=== PATIENT | male | born 1960 | race Caucasian/White ===

== ENCOUNTER 2022-01-11 21:14 | Inpatient (IN) | payer BC ==
[~2022-01-11] VITALS: Ht 172.7 cm; Wt 96.9 kg
[2022-01-11 21:49] LABS: BASOPHILS # (AUTO) 0.1 10^3/uL (0.0-0.1); BASOPHILS % (AUTO) 0 % (0-10); EOSINOPHILS # (AUTO) 0.2 10^3/uL (0.0-0.3); EOSINOPHILS % (AUTO) 1 % (0-10); HEMATOCRIT 47 % (40-54); HEMOGLOBIN 16.3 g/dL (13.3-17.7); LYMPHOCYTES # (AUTO) 2.2 10^3/uL (1.0-4.0); LYMPHOCYTES % (AUTO) 14 % (12-44); MEAN CORPUSCULAR HEMOGLOBIN 32 pg (25-34); MEAN CORPUSCULAR HGB CONC 35 g/dL (32-36); MEAN CORPUSCULAR VOLUME 92 fL (80-99); MEAN PLATELET VOLUME 9.9 fL (9.0-12.2); MONOCYTES # (AUTO) 1.7 10^3/uL (0.0-1.0); MONOCYTES % (AUTO) 11 % (0-12); NEUTROPHILS # (AUTO) 11.9 10^3/uL (1.8-7.8); NEUTROPHILS % (AUTO) 74 % (42-75); PLATELET COUNT 320 10^3/uL (130-400); WHITE BLOOD COUNT 16.2 10^3/uL (4.3-11.0)
[2022-01-11 21:50] LABS: BILIRUBIN,URINE NEGATIVE (NEGATIVE); CLARITY,URINE CLEAR; COLOR,URINE YELLOW; GLUCOSE, URINE (UA) NEGATIVE (NEGATIVE); KETONES,URINE NEGATIVE (NEGATIVE); LEUKOCYTE ESTERASE ,URINE NEGATIVE (NEGATIVE); NITRITE,URINE NEGATIVE (NEGATIVE); PH,URINE 6.5 (5-9); PROTEIN,URINE 1+ (NEGATIVE)
[2022-01-11 21:59] LABS: BACTERIA,URINE NEGATIVE /HPF; WBC,URINE 0-2 /HPF
[2022-01-11] MEDS ORDERED: fentaNYL INJ 100 MCG/2 ML AMP IVP ONE (22:00)
[2022-01-11 22:04] LABS: EOSINOPHILS % (MANUAL) 1 %; LYMPHOCYTES % (MANUAL) 11 %; MONOCYTES % (MANUAL) 19 %; NEUTROPHILS % (MANUAL) 69 %
[2022-01-11 22:05] LABS: RBC MORPH NORMAL
--- NOTE | 2022-01-11 22:14 | ED Abdominal Pain ---
General Chief Complaint: Abdominal/GI Problems Stated Complaint: R SIDE ABD PAIN Nursing Triage Note: PT AMBULATORY INTO ER WITH COMPLAINT OF RIGHT SIDED ABDOMINAL PAIN SINCE THIS AM. PT STATES THAT ITS A SHARP PAIN THAT DOESN'T RADIATE. PT DENIES IT WORSENING WITH URINE OR BOWEL. PT DENIES NAUSEA OR VOMITING. PAINT A /10. PT STATES THAT HE TAKES PERCOCET AT HOME FOR SCIATICA PAIN AND IT DIDN'T HELP WITH THE ABDOMINAL PAIN AT ALL. Source of Information: Patient Exam Limitations: No Limitations History of Present Illness Date Seen by Provider: January 11, 2022 Time Seen by Provider: 21:27 Initial Comments This 61-year-old gentleman presents to the emergency room with intense right upper quadrant pain that started early this morning and woke him up. It does hurt to breathe and sometimes to move. He denies any nausea, vomiting, diarrhea, constipation, or urinary changes. He reports a questionable subjective fever earlier but nothing objective. He ate smoked turkey and beans around 1630 which worsened his pain. He has very little health history. He is treated for chronic back pain and hypertension. He sees Nesha at [facility] for his primary care. Allergies and Home Medications Allergies Coded Allergies: Penicillins (Verified Allergy, Unknown, 01/11/22) Patient Home Medication List Home Medication List Reviewed: Yes Review of Systems Review of Systems Constitutional: see HPI EENTM: No Symptoms Reported Respiratory: See HPI Cardiovascular: No Symptoms Reported Gastrointestinal: See HPI Genitourinary: No Symptoms Reported Musculoskeletal: see HPI Skin: no symptoms reported Psychiatric/Neurological: No Symptoms Reported Endocrine: No Symptoms Reported Hematologic/Lymphatic: No Symptoms Reported Past Ufsaxhm-Dhrich-Jlochk Hx Patient Social History Tobacco Use?: No Use of E-Cig and/or Vaping dev: No Substance use?: No Alcohol Use?: No Pt feels they are or have been: No Immunizations Up To Date Influenza Vaccine Up-to-Date: Yes; Up-to-Date Second COVID19 Vaccination Armani: 08/03 COVID19 Vaccine Ob Gyn: AVTAR Past Medical History Surgeries: No Respiratory: No Cardiac: Yes Hypertension Neurological: No Genitourinary: No Gastrointestinal: No Musculoskeletal: Yes (Sciatica) Chronic Back Pain Endocrine: No HEENT: No Cancer: No Psychosocial: No Integumentary: No Physical Exam Vital Signs Vital Signs - First Documented 01/11/22 21:54 Temp 36.8 Pulse 91 Resp 18 B/P (MAP) 167/95 (119) Pulse Ox 95 O2 Delivery Room Air Capillary Refill : Less Than 3 Seconds Height/Weight/BMI Height: '" Weight: lbs. oz. kg; 31.00 BMI Method: General Appearance: WD/WN, mild distress HEENT: PERRL/EOMI, normal ENT inspection Neck: normal inspection Respiratory: lungs clear, normal breath sounds, no respiratory distress Cardiovascular: no edema, no murmur, tachycardia (Mild, regular) Gastrointestinal: normal bowel sounds, soft; No distended; tenderness (Moderate to severe point tenderness in the right upper quadrant) Extremities: normal inspection, no pedal edema Neurologic/Psychiatric: no motor/sensory deficits, alert, normal mood/affect, oriented x 3 Skin: normal color, warm/dry Focused Exam Lactate Level 01/11/22 23:21: Lactic Acid Level 0.78 Lactic Acid Level Laboratory Tests Test 01/11/22 23:21 Lactic Acid Level 0.78 MMOL/L (0.50-2.00) Progress/Results/Core Measures Results/Orders Lab Results Laboratory Tests Test 01/11/22 21:36 01/11/22 23:21 Range/Units White Blood Count 16.2 H 4.3-11.0 10^3/uL Red Blood Count 5.12 4.30-5.52 10^6/uL Hemoglobin 16.3 13.3-17.7 g/dL Hematocrit 47 40-54 % Mean Corpuscular Volume 92 80-99 fL Mean Corpuscular Hemoglobin 32 25-34 pg Mean Corpuscular Hemoglobin Concent 35 32-36 g/dL Red Cell Distribution Width 12.2 10.0-14.5 % Platelet Count 320 130-400 10^3/uL Mean Platelet Volume 9.9 9.0-12.2 fL Immature Granulocyte % (Auto) 0 % Neutrophils (%) (Auto) 74 42-75 % Lymphocytes (%) (Auto) 14 12-44 % Monocytes (%) (Auto) 11 0-12 % Eosinophils (%) (Auto) 1 0-10 % Basophils (%) (Auto) 0 0-10 % Neutrophils # (Auto) 11.9 H 1.8-7.8 10^3/uL Lymphocytes # (Auto) 2.2 1.0-4.0 10^3/uL Monocytes # (Auto) 1.7 H 0.0-1.0 10^3/uL Eosinophils # (Auto) 0.2 0.0-0.3 10^3/uL Basophils # (Auto) 0.1 0.0-0.1 10^3/uL Immature Granulocyte # (Auto) 0.1 0.0-0.1 10^3/uL Neutrophils % (Manual) 69 % Lymphocytes % (Manual) 11 % Monocytes % (Manual) 19 % Eosinophils % (Manual) 1 % Blood Morphology Comment NORMAL Prothrombin Time 13.4 12.2-14.7 SEC INR Comment 1.0 0.8-1.4 Activated Partial Thromboplast Time 33 24-35 SEC Urine Color YELLOW Urine Clarity CLEAR Urine pH 6.5 5-9 Urine Specific [place] 1.015 L 1.016-1.022 Urine Protein 1+ H NEGATIVE Urine Glucose (UA) NEGATIVE NEGATIVE Urine Ketones NEGATIVE NEGATIVE Urine Nitrite NEGATIVE NEGATIVE Urine Bilirubin NEGATIVE NEGATIVE Urine Urobilinogen 0.2 < = 1.0 MG/DL Urine Leukocyte Esterase NEGATIVE NEGATIVE Urine RBC (Auto) 1+ H NEGATIVE Urine RBC 2-5 H /HPF Urine WBC 0-2 /HPF Urine Squamous Epithelial Cells NONE /HPF Urine Renal Epithelial Cells NONE /HPF Urine Crystals NONE /LPF Urine Bacteria NEGATIVE /HPF Urine Casts NONE /LPF Urine Mucus NEGATIVE /LPF Urine Culture Indicated NO Sodium Level 140 135-145 MMOL/L Potassium Level 3.7 3.6-5.0 MMOL/L Chloride Level 107 98-107 MMOL/L Carbon Dioxide Level 18 L 21-32 MMOL/L Anion Gap 15 H 5-14 MMOL/L Blood Urea Nitrogen 16 7-18 MG/DL Creatinine 1.38 H 0.60-1.30 MG/DL Estimat Glomerular Filtration Rate 57 BUN/Creatinine Ratio 12 Glucose Level 125 H 70-105 MG/DL Calcium Level 9.6 8.5-10.1 MG/DL Corrected Calcium 9.4 8.5-10.1 MG/DL Total Bilirubin 0.9 0.1-1.0 MG/DL Aspartate Amino Transf (AST/SGOT) 19 5-34 U/L Alanine Aminotransferase (ALT/SGPT) 26 0-55 U/L Alkaline Phosphatase 85 40-136 U/L C-Reactive Protein High Sensitivity 17.30 H 0.00-0.50 MG/DL Total Protein 7.5 6.4-8.2 GM/DL Albumin 4.2 3.2-4.5 GM/DL Lipase 13 8-78 U/L Lactic Acid Level 0.78 0.50-2.00 MMOL/L My Orders Orders - ISRRAEL MORA MD Cbc With Automated Diff (01/11/22:27) Comprehensive Metabolic Panel (01/11/22:) Hs C Reactive Protein (01/11/22:) Ua Culture If Indicated (01/11/22:27) Ed Iv/Invasive Line Start (01/11/22:27) Manual Differential (01/11/22 21:36) Fentanyl Inj (Sublimaze Injection) (01/11/22 22:00) Lipase (01/11/22 22:02) Lactated Ringers (Lr 1000 Ml Iv Solution (01/11/22 22:45) Ct Abdomen/Pelvis W (01/11/22 22:32) Iohexol Injection (Omnipaque 350 Mg/Ml 1 (01/11/22 23:15) Received Contrast (Hold Metformin- Contr (01/11/22 23:15) Ns (Ivpb) (Sodium Chloride 0.9% Ivpb Bag (01/11/22 23:15) Blood Culture (01/11/22 23:13) Protime With Inr (01/11/22 23:13) Partial Thromboplastin Time (01/11/22 23:13) Vital Signs Adult Sepsis Patie Q15M (01/11/22 23:13) Remove Rings In Anticipation O (01/11/22 23:13) Lactic Acid Analyzer (01/11/22 23:13) Meropenem (Merrem 1000 Mg) (01/11/22 23:15) Medications Given in ED Current Medications Medications Dose Ordered Sig/Tomasz Route Start Time Stop Time Status Last Admin Dose Admin Fentanyl Citrate 75 mcg ONCE ONCE IVP 01/11/22 22:00 01/11/22 22:01 DC 01/11/22 22:06 75 MCG Iohexol 100 ml ONCE ONCE IV 01/11/22 23:15 01/11/22 23:24 DC 01/11/22 23:05 100 ML Lactated Ringer's 1,000 ml @ 0 mls/hr Q0M ONCE IV 01/11/22 22:45 01/11/22 22:46 DC 01/11/22 22:46 999 MLS/HR Meropenem 1000 mg/ Sodium Chloride 100 ml @ 200 mls/hr ONCE ONCE IV 01/11/22 23:15 01/11/22 23:44 DC 01/12/22 00:25 200 MLS/HR Sodium Chloride 100 ml ONCE ONCE IV 01/11/22 23:15 01/11/22 23:24 DC 01/11/22 23:05 80 ML Vital Signs/I&O 01/11/22 21:54 Temp 36.8 Pulse 91 Resp 18 B/P (MAP) 167/95 (119) Pulse Ox 95 O2 Delivery Room Air Blood Pressure Mean: 119 Progress Progress Note #1: Time: 22:13 Progress Note Patient was seen and examined. Fentanyl 75 mcg was ordered for pain control. Labs are pending. Progress Note #2: Progress Note Pain remained controlled with fentanyl. Patient was found to have acute cholecystitis by CT scan. There was possibly a stone in the gallbladder neck. Case was discussed with Dr. Campo who was agreeable to admission. Antibiotic therapy was initiated with meropenem. Meropenem was selected due to penicillin allergy. I discussed CODE STATUS with the patient he elected to remain full code. Patient received a liter of IV fluid while in the ER. Diagnostic Imaging Diagonstic Imaging: CT Plain Films/CT/US/NM/MRI: abdomen, pelvis Comments CT scan viewed by me and stat rad report reviewed. There is evidence of acute cholecystitis with wall thickening and pericolic edema and inflammation. There is possibly a stone in the gallbladder neck. Departure Communication (Admissions) Time/Spoke to Admitting Phy: 23:40 Dr. Campo Impression Primary Impression: Acute cholecystitis Disposition: ADMITTED INPATIENT Condition: Improved Admissions Decision to Admit Reason: Admit from ER (General) Decision to Admit/Date: January 11, 2022 Time/Decision to Admit Time: 23:40 Departure-Patient Inst. Referrals: NO,LOCAL PHYSICIAN (PCP/Family) Primary Care Physician Copy Copies To 1: MARI FORD JOSHUA T MD January 11, 2022 22:14
[2022-01-11 22:18] LABS: ALBUMIN 4.2 GM/DL (3.2-4.5); BILIRUBIN,TOTAL 0.9 MG/DL (0.1-1.0); CALCIUM 9.6 MG/DL (8.5-10.1); CREATININE SERUM 1.38 MG/DL (0.60-1.30); POTASSIUM 3.7 MMOL/L (3.6-5.0); TOTAL PROTEIN 7.5 GM/DL (6.4-8.2)
[2022-01-11] MEDS ORDERED: LACTATED RINGERS 1,000 ML IV ONE (22:45)
[2022-01-11] MEDS ORDERED: NS 100 ML (IVPB) BAG IV ONE (23:15)
[2022-01-11] MEDS ORDERED: MEROPENEM 1,000 MG in NS (IVPB) 100 ML IV ONE (23:15)
[2022-01-11] MEDS ORDERED: IOHEXOL 350 MG/ML 100 ML (OMNIPAQUE 350) VIAL IV ONE (23:15)
[2022-01-11] MEDS ORDERED: HOLD METFORMIN - RECEIVED CONTRAST 20 ML VIAL IV SCH (23:15)
[2022-01-11 23:26] LABS: PROTHROMBIN TIME PATIENT 13.4 SEC (12.2-14.7)
[2022-01-12] VITALS (12 sets, daily range): BP systolic 127–158; BP diastolic 63–92
[2022-01-12] MEDS ORDERED: LACTATED RINGERS 1,000 ML IV ONE (00:44)
[2022-01-12] MEDS: LACTATED RINGERS 1,000 ML IV SCH ×4 (01:13→23:19)
[2022-01-12] MEDS ORDERED: ONDANSETRON 4 MG/2 ML (SDV) Z0FRAN IV PRN (01:15)
[2022-01-12] MEDS: MEROPENEM 500 MG/NS 100 ML IVPB IV SCH ×8 (05:30→23:18)
[2022-01-12] MEDS: oxyCODONE/APAP 5/325MG (PERCOCET 5) TABLET PO PRN (05:33)
[2022-01-12 05:46] LABS: BASOPHILS # (AUTO) 0.1 10^3/uL (0.0-0.1); BASOPHILS % (AUTO) 0 % (0-10); EOSINOPHILS # (AUTO) 0.3 10^3/uL (0.0-0.3); EOSINOPHILS % (AUTO) 3 % (0-10); HEMATOCRIT 44 % (40-54); HEMOGLOBIN 15.2 g/dL (13.3-17.7); LYMPHOCYTES # (AUTO) 2.1 10^3/uL (1.0-4.0); LYMPHOCYTES % (AUTO) 17 % (12-44); MEAN CORPUSCULAR HEMOGLOBIN 32 pg (25-34); MEAN CORPUSCULAR HGB CONC 35 g/dL (32-36); MEAN CORPUSCULAR VOLUME 93 fL (80-99); MEAN PLATELET VOLUME 9.9 fL (9.0-12.2); MONOCYTES # (AUTO) 1.4 10^3/uL (0.0-1.0); MONOCYTES % (AUTO) 11 % (0-12); NEUTROPHILS # (AUTO) 8.4 10^3/uL (1.8-7.8); NEUTROPHILS % (AUTO) 68 % (42-75); PLATELET COUNT 273 10^3/uL (130-400); WHITE BLOOD COUNT 12.3 10^3/uL (4.3-11.0)
[2022-01-12 05:55] LABS: ALBUMIN 3.5 GM/DL (3.2-4.5); POTASSIUM 3.8 MMOL/L (3.6-5.0)
[2022-01-12] MEDS: morphine INJ 4 MG/ML 1 ML (VIAL/SYRINGE) IV PRN ×3 (05:55→21:44)
[2022-01-12 05:56] LABS: CALCIUM 8.9 MG/DL (8.5-10.1)
[2022-01-12 05:58] LABS: TOTAL PROTEIN 6.2 GM/DL (6.4-8.2)
[2022-01-12 05:59] LABS: BILIRUBIN,TOTAL 0.9 MG/DL (0.1-1.0)
[2022-01-12 06:01] LABS: CREATININE SERUM 0.99 MG/DL (0.60-1.30)
--- NOTE | 2022-01-12 06:45 | Diagnostic Imaging Report ---
EXAMINATION: CT abdomen and pelvis with intravenous contrast. TECHNIQUE: Multiple contiguous axial images were obtained through the abdomen and pelvis after the uneventful administration of intravenous contrast. All CT scans use one or more of the following dose optimizing techniques: automated exposure control, MA and/or KvP adjustment based on patient size and exam type or iterative reconstruction. HISTORY: Right upper quadrant pain. COMPARISON: None available. FINDINGS: Limited views of the lower thorax show mild bibasilar atelectasis. The liver is normal without focal lesion. There is no biliary ductal dilation. There is gallbladder wall thickening and surrounding stranding. There is likely a small stone at the gallbladder neck. Pancreas is normal. Spleen is normal. Adrenal glands are normal. There are peripelvic cysts on the left. No suspicious renal lesions. There is no hydronephrosis. Urinary bladder is normal. Bowel is normal in caliber without obstruction or inflammation. The appendix is normal. There is a small amount of free fluid in the pelvis. No free air. No abdominal or pelvic lymphadenopathy. Aorta is normal in caliber without aneurysm. There are no suspicious osseus lesions. IMPRESSION: 1. Gallbladder wall thickening and surrounding stranding with a likely stone at the gallbladder neck. Findings consistent with acute cholecystitis. There is no significant disagreement with the preliminary report. Dictated by: Dictated on workstation # [id number]
[2022-01-12] MEDS: FAMOTIDINE 20 MG (PEPCID) TABLET PO SCH ×2 (09:13→22:29)
[2022-01-12] MEDS ORDERED: morphine INJ 10 MG/ML 1ML (SYR OR VIAL) ONE (15:38)
[2022-01-12] MEDS ORDERED: MEPERIDINE (DEMEROL) INJ 50 MG/ML ONE (15:38)
[2022-01-12] MEDS ORDERED: fentaNYL INJ 100 MCG/2 ML AMP ONE ×2 (15:38→18:35)
[2022-01-12] MEDS ORDERED: ONDANSETRON 4 MG/2 ML (SDV) Z0FRAN ONE ×2 (15:38→18:34)
[2022-01-12] MEDS ORDERED: fentaNYL INJ 100 MCG/2 ML AMP IVP ONE ×2 (16:30→17:15)
[2022-01-12] MEDS ORDERED: ONDANSETRON 4 MG/2 ML (SDV) Z0FRAN IVP PRN (17:15)
[2022-01-12] MEDS ORDERED: MEPERIDINE (DEMEROL) INJ 50 MG/ML IVP ONE (17:15)
[2022-01-12] MEDS ORDERED: morphine INJ 10 MG/ML 1ML (SYR OR VIAL) IVP ONE (17:15)
--- NOTE | 2022-01-12 17:48 | HISTORY AND PHYSICAL ---
DATE OF SERVICE: HISTORY OF PRESENT ILLNESS: The patient is a 61-year-old male, who presented to the emergency room last night with sharp right upper quadrant abdominal pain that awoken him early yesterday in morning. He denied any nausea or vomiting as well as no diarrhea or constipation. He reports that he has not noticed anything in the past. Reports that he did feel like he was running a low-grade fever yesterday. He did report eating or smoke turkey and some beans around 4:30 yesterday afternoon and reports that this did worsen his pain. He then presented to the Emergency Department last night where he was found to have a leukocytosis of 16.[address] scan, which did show acute cholecystitis with wall thickening and pericolic edema and inflammation as well as the possibility of a stone in the gallbladder neck. He reports today that he has continued to have pain, but denies any other symptoms. It was explained to the patient that due to the findings that he would need to have his gallbladder removed. PAST MEDICAL HISTORY: Hypertension, neuropathy, sciatica, chronic back pain. PAST SURGICAL HISTORY: None. ALLERGIES: PENICILLIN. MEDICATIONS: Percocet 7.5 mg p.r.n., gabapentin, blood pressure medication. SOCIAL HISTORY: Negative for tobacco smoke. Negative for alcohol. FAMILY HISTORY: Noncontributory. VITAL SIGNS: Blood pressure 144/79, pulse 83, respirations 16, pulse ox 93% on room air, temperature 36.5 degrees Celsius. REVIEW OF SYSTEMS: This is a well-nourished male in no acute distress. He is not experiencing any shortness of breath or difficulty breathing. No chest pain, palpitations, or diaphoresis. No nausea or vomiting. He does report right upper quadrant abdominal pain. No diarrhea or constipation. No red blood per rectum. No dark tarry stools. No fever or chills. No recent inadvertent weight loss. All other review of systems negative. PHYSICAL EXAMINATION: CHEST: Clear. Good breath sounds bilaterally. HEART: Regular, no murmurs. EXTREMITIES: No lower extremity edema. Negative Homans sign. HEENT: No scleral icterus. NECK: No cervical lymphadenopathy. ABDOMEN: Soft, nondistended. There is some moderate discomfort with tenderness in the right upper abdominal quadrant. No peritoneal signs. SKIN: Warm, dry and pink. NEUROLOGIC: Awake, alert and oriented x3. ASSESSMENT AND PLAN: A 61-year-old male with an acute cholecystitis. At this time, the risks and benefits of the procedure as well as the procedure and home care instructions were explained to the patient. He verbalized understanding of instructions and agrees to proceed as planned. At this time, we will proceed with scheduling him for a laparoscopic cholecystectomy on this admission. CC: [facility] -- requested, unable to deliver. Job ID: [id number] DocumentID: [id number] Dictated Date: 01/12/2022 16:56:44 Eyeglass Assembler Date: 01/12/2022 17:48:08 Dictated By: WENDY BALLESTEROS APRN
[2022-01-12] MEDS ORDERED: HYDR-3817 PO (18:11)
--- NOTE | 2022-01-12 18:11 | Progress Note-Pre Operative ---
Pre-Operative Progress Note H&P Reviewed The H&P was reviewed, patient examined and no changes noted. Date Seen by Provider: January 12, 2022 Time Seen by Provider: 18:00 Date H&P Reviewed: January 12, 2022 Time H&P Reviewed: 18:00 Pre-Operative Diagnosis: chronic calculous cholecystitis MARCUS DA SILVA MD January 12, 2022 18:11
--- NOTE | 2022-01-12 18:12 | Discharge Inst-Surgical ---
D/C Lap Instructions-REKHA New, Converted, or Re-Newed RX: RX on Chart Follow Up Appt in 2 weeks Activity as tolerated No driving for 24 hours No [address] while on pain medications Incentive Spirometry use every 2 hours while awake Regular Diet Symptoms to Report: Fever over 101 degree F, Nausea/Vomiting Infection Signs and Symptoms to report: Increased redness, Foul odor of wound, Increased drainage Bathing instructions: May shower Operative Area Clean/Dry; Keep incision clean/dry If any problems/questions: Contact your physician or go to Emergency Room MARCUS DA SILVA MD January 12, 2022 18:12
[2022-01-12] MEDS ORDERED: LIDOCAINE/EPI 2% 1:100,00 (XYLOCAINE) 20 ML VIAL ONE (18:25)
[2022-01-12] MEDS ORDERED: SEVOFLURANE (ULTANE) 15 ML INHAL SOLN ONE ×2 (18:34→19:59)
[2022-01-12] MEDS ORDERED: LIDOCAINE PF 2% 5 ML (XYLOCAINE) VIAL ONE (18:34)
[2022-01-12] MEDS ORDERED: proPOfol 200 MG/20 ML (DIPRIVAN) VIAL IV ONE (18:34)
[2022-01-12] MEDS ORDERED: MIDAZOLAM 2 MG/2 ML (VERSED) VIAL ONE (18:35)
[2022-01-12] MEDS: LACTATED RINGERS 1,000 ML IV PRN ×3 (18:49→21:00)
[2022-01-12] MEDS ORDERED: GLYCOPYRROLATE 0.2 MG/ML (ROBINUL) 2 ML VIAL ONE (19:59)
[2022-01-12] MEDS ORDERED: NEOSTIGMINE 3 MG/3 ML VIAL ONE (19:59)
[2022-01-12] MEDS ORDERED: LORazepam INJ 2 MG/ML (ATIVAN) VIAL IVP PRN (23:00)
--- NOTE | 2022-01-12 23:04 | OPERATIVE REPORT ---
DATE OF SERVICE: 01/12/2022 PREOPERATIVE DIAGNOSIS: Acute calculous cholecystitis. POSTOPERATIVE DIAGNOSIS: Same PROCEDURE: Laparoscopic cholecystectomy SURGEON: Marcus Da Silva MD [employer] SORTER: John Camp APRN. ANESTHESIA: General endotracheal. ESTIMATED BLOOD LOSS: Minimal. FINDINGS: A thickened gallbladder wall, distended gallbladder, multiple gallstones. DISPOSITION: The patient tolerated the procedure well. INDICATIONS: The patient is a 61-year-old male, who presented to the Emergency Department with sharp pain in the right upper abdominal quadrant, which persisted. This also did cause some anorexia; however, no vomiting. He also felt that he ran a low-grade temperature as well. He decided to go to the Emergency Department, was found to have a leukocytosis of 16.2, underwent a CT scan, which did show a thickened gallbladder wall as well as pericholecystic fluid and gallstones consistent with acute cholecystitis. DESCRIPTION OF PROCEDURE: The patient was brought to the operating room, laid supine on the table. After adequate IV pain and sedative medications and general endotracheal intubation, the abdomen was prepped and draped in standard surgical fashion. A 0.5% Marcaine with epinephrine was used to anesthetize the overlying skin in left upper abdominal quadrant and transverse skin incision made using a 15 blade. An 0 silk suture was applied to the medial aspect incision for retraction and a Veress needle inserted with a low opening pressure of 0 mmHg. The abdomen was then insufflated to 15 mmHg pressure. The Veress needle removed and a 5 mm XL trocar placed followed by a 5 mm 45-degree angle laparoscope visualizing the peritoneal cavity. A 4-quadrant abdominal exploration was performed. There was a thickened gallbladder wall as well as a distended gallbladder. Under direct visualization, we then proceeded to place a supraumbilical 10 mm port after the skin and peritoneal lining were anesthetized using 0.5% Marcaine with epinephrine and a transverse skin incision made using a 15 blade. In a similar manner, a right upper abdominal quadrant 5 mm port was placed. The gallbladder was then decompressed with a laparoscopic needle and sterile tubing. The patient was then placed in a reverse Trendelenburg position as well as plane right side up, left side down. The fundus of the gallbladder was then retracted anteriorly and superiorly. The hepatoduodenal ligament was then dissected using blunt dissection as well as electrocautery on the hook instrument as well as [place] dissector. The entire critical view of safety was identified including the triangle of Calot as well as the cystic duct and artery as the only two structures going into the gallbladder as well as the cystic plate behind the proximal gallbladder. A timeout was then taken and the cystic duct and artery were then clipped proximally, distally and cut with EndoShears. The gallbladder was then dissected off the liver bed using cautery on hook instrument with visualization of good hemostasis as well as no leaking ducts of Luschka. The gallbladder was removed through the 10 mm port site using an EndoCatch bag. The 10 mm port site fascia and peritoneum were then closed under direct visualization using a Norris-García device and 0 Vicryl suture. The abdomen was desufflated and remaining ports removed. All skin incisions were closed using 4-0 Monocryl running subcuticular sutures. Wounds were then cleaned and covered with Dermabond. The patient tolerated the procedure well. We will start IV normal pain medication as well as a clear liquid diet. Once he is tolerating clears, has good pain control with oral pain medications, is ambulating well, we will discharge him home where he will be instructed to do no heavy lifting or exertion for the next two weeks. Job ID: [id number] DocumentID: [id number] Dictated Date: 01/12/2022 20:12:06 Damage Appraiser Date: 01/12/2022 23:04:10 Dictated By: MARCUS DA SILVA MD [facility]
[2022-01-13 00:16] VITALS: BP 159/74
[2022-01-13] MEDS: morphine INJ 4 MG/ML 1 ML (VIAL/SYRINGE) IV PRN ×3 (01:52→11:25)
[2022-01-13] MEDS ORDERED: AMLO-251 PO ×2 (04:23→11:18)
[2022-01-13] MEDS ORDERED: LOSA100T57 PO ×2 (04:23→11:18)
[2022-01-13 04:35] VITALS: BP 159/91
[2022-01-13] MEDS ORDERED: PATIENT MAY USE OWN MEDS, ALL MC SCH (05:00)
[2022-01-13] MEDS: amLODIPine 10 MG (NORVASC) TAB PO SCH ×2 (05:47→08:14)
[2022-01-13] MEDS: MEROPENEM 500 MG/NS 100 ML IVPB IV SCH ×2 (05:47)
[2022-01-13] MEDS: LOSARTAN 100 MG (COZAAR) TABLET PO SCH ×2 (05:48→08:14)
[2022-01-13 08:11] VITALS: BP 160/90
[2022-01-13] MEDS: FAMOTIDINE 20 MG (PEPCID) TABLET PO SCH (08:14)
[2022-01-13] MEDS: oxyCODONE/APAP 5/325MG (PERCOCET 5) TABLET PO PRN (08:15)
--- NOTE | 2022-01-13 09:17 | Anesthesia-General Post-Op ---
General Patient Condition Mental Status/LOC: Same as Preop Cardiovascular: Satisfactory Nausea/Vomiting: Absent Respiratory: Satisfactory Pain: Controlled Complications: Absent Post Op Complications Complications None Follow Up Care/Instructions Patient Instructions None needed. Anesthesia/Patient Condition Patient Condition Patient is doing well, no complaints, stable vital signs, no apparent adverse anesthesia problems. No complications reported per nursing. JO SCOTT CRNA January 13, 2022 09:17
[2022-01-13] MEDS ORDERED: OXYC1TAB15 PO (11:18)
[2022-01-13] MEDS ORDERED: ASPI-1238 PO (11:18)
[2022-01-13] MEDS ORDERED: GBPN600T PO (11:18)
[2022-01-13] MEDS ORDERED: [UNRECOGNIZED DRUG - CODE] PO (11:18)
[2022-01-13] MEDS ORDERED: KRIL500C PO (11:18)
[2022-01-13] MEDS ORDERED: GINK40CA5 PO (11:18)
[2022-01-13] MEDS: LACTATED RINGERS 1,000 ML IV SCH (11:26)
[2022-01-13 11:33] VITALS: BP 149/79
== END 2022-01-13 12:40 | disposition home or self-care (01) | DRG 419 ==
LOC: ER 21:17 → 4TH 23:40
PROVIDERS: ADMIT Surgery; ATTEND Surgery
PROC: 0FT44ZZ Resection of Gallbladder, Percutaneous Endoscopic Approach (ICD-10-PCS; principal; 2022-01-12 18:49)
DX: K80.00 Calculus of gallbladder with acute cholecystitis without obstruction (principal); I10 Essential (primary) hypertension; M54.40 Lumbago with sciatica, unspecified side; G62.9 Polyneuropathy, unspecified; Z88.0 Allergy status to penicillin
CPT/HCPCS: 36415; 74177; 80053; 81000; 83605; 83690; 85007; 85025; 85027; 85610; 85730; 86141; 87040; 87081

== ENCOUNTER 2022-01-16 16:27 | Inpatient (IN) | payer BC ==
[~2022-01-16] VITALS: Ht 172.7 cm; Wt 98.0 kg
[~2022-01-16 16:27] MED LIST: AMLO-251 PO; ASPI-1238 PO; GBPN600T PO; GINK40CA5 PO; HYDR-3817 PO; KRIL500C PO; LOSA100T57 PO; OXYC1TAB15 PO; [UNRECOGNIZED DRUG - CODE] PO
[2022-01-16 16:54] LABS: BASOPHILS # (AUTO) 0.1 10^3/uL (0.0-0.1); BASOPHILS % (AUTO) 0 % (0-10); EOSINOPHILS # (AUTO) 0.2 10^3/uL (0.0-0.3); EOSINOPHILS % (AUTO) 1 % (0-10); HEMATOCRIT 48 % (40-54); HEMOGLOBIN 16.3 g/dL (13.3-17.7); LYMPHOCYTES # (AUTO) 1.3 10^3/uL (1.0-4.0); LYMPHOCYTES % (AUTO) 9 % (12-44); MEAN CORPUSCULAR HEMOGLOBIN 32 pg (25-34); MEAN CORPUSCULAR HGB CONC 34 g/dL (32-36); MEAN CORPUSCULAR VOLUME 93 fL (80-99); MEAN PLATELET VOLUME 9.9 fL (9.0-12.2); MONOCYTES # (AUTO) 1.5 10^3/uL (0.0-1.0); MONOCYTES % (AUTO) 10 % (0-12); NEUTROPHILS # (AUTO) 11.4 10^3/uL (1.8-7.8); NEUTROPHILS % (AUTO) 78 % (42-75); PLATELET COUNT 516 10^3/uL (130-400); WHITE BLOOD COUNT 14.5 10^3/uL (4.3-11.0)
[2022-01-16 17:01] LABS: ALBUMIN 3.5 GM/DL (3.2-4.5)
[2022-01-16 17:02] LABS: POTASSIUM 4.1 MMOL/L (3.6-5.0)
[2022-01-16 17:03] LABS: CALCIUM 9.7 MG/DL (8.5-10.1)
[2022-01-16 17:04] LABS: TOTAL PROTEIN 7.6 GM/DL (6.4-8.2)
[2022-01-16 17:06] LABS: BILIRUBIN,TOTAL 3.7 MG/DL (0.1-1.0)
[2022-01-16 17:08] LABS: CREATININE SERUM 1.07 MG/DL (0.60-1.30)
--- NOTE | 2022-01-16 17:10 | ED General ---
General Chief Complaint: Post OP Complications/Pain Stated Complaint: PAIN, PNE Nursing Triage Note: PT AMBULATE TO ROOM 07 WITH C/O ABD PAIN. PT REPORTS HAVING GALLBLADDER REMOVED ON WEDNESDAY AND THAT HE HAS NOT BEEN EATING, DRINKING, AND WALKING LIKE HE WAS INSTRUCTED TO DO. PT STATES WAS SEEN BY PCP TODAY AND A UA SHOWED HIGH BILIRUBIN IN URINE. PT STATES HE WAS TOLD HE HAS PNEUMONIA AND A POSSIBLE STONE. Source of Information: Patient Exam Limitations: No Limitations History of Present Illness Date Seen by Provider: January 16, 2022 Time Seen by Provider: 17:06 Initial Comments To ER with reports that he had a lap cholecystectomy here with Dr Campo on Wednesday01/12/22. He had a follow up with PCP [facility] today and was found to have pneumonia on chest xray, elevated wbc, and elevated bilirubin in urine. Timing/Duration: 1-2 Days Severity: Moderate Associated Systoms: Cough, Fever/Chills Allergies and Home Medications Allergies Coded Allergies: Penicillins (Verified Allergy, Unknown, 01/11/22) Patient Home Medication List Home Medication List Reviewed: Yes Amlodipine Besylate (Amlodipine Besylate) 10 Mg Tablet, 10 MG PO HS, (Reported) Entered as Reported by: MACK ALVAREZ on 01/13/22 1118 Aspirin (Aspirin EC) 81 Mg Tablet.dr, 81 MG PO HS, (Reported) Entered as Reported by: MACK ALVAREZ on 01/13/22 1118 Gabapentin (Gabapentin) 600 Mg Tablet, 600 MG PO TID, (Reported) Entered as Reported by: MACK ALVAREZ on 01/13/22 1118 Ginkgo Biloba (Ginkgo Biloba) 40 Mg Capsule, 40 MG PO DAILY, (Reported) Entered as Reported by: MACK ALVAREZ on 01/13/22 1118 Hydrocodone/Acetaminophen (Hydrocodone-Acetamin 7.5-325) 7.5 Mg-325 Mg Tablet, 1 EACH PO Q4H Prescribed by: MARCUS CAMPO on 01/12/22 181 Krill Oil (Krill Oil) 500 Mg Capsule, 500 MG PO DAILY, (Reported) Entered as Reported by: MACK ALVAREZ on 01/13/22 1118 Losartan Potassium (Losartan Potassium) 100 Mg Tablet, 100 MG PO DAILY, (Reported) Entered as Reported by: MACK ALVAREZ on 01/13/221117 Niacin (Niacin) 100 Mg Tablet, 200 MG PO DAILY, (Reported) Entered as Reported by: MACK ALVAREZ on 01/13/221117 Discontinued Medications Amlodipine Besylate (Amlodipine Besylate) 10 Mg Tablet, 10 MG PO DAILY PRN for BLOOD PRESSURE Discontinued Reason: Duplicate Order Prescribed by: PONCHO JOHNSON on 01/13/22422 Losartan Potassium (Losartan Potassium) 100 Mg Tablet, 100 MG PO DAILY Discontinued Reason: Duplicate Order Prescribed by: PONCHO JOHNSON on 01/13/22422 Oxycodone HCl/Acetaminophen (Oxycodon-Acetaminophen 7.5-325) 7.5 Mg-325 Mg Tablet, 1 EA PO Q6H PRN for PAIN-MODERATE (5-7), (Reported) Discontinued Reason: Referral/FU Appt-Addtl Entered as Reported by: MACK ALVAREZ on 01/13/221117 Review of Systems Review of Systems Constitutional: see HPI, chills, fever, malaise, weakness EENTM: see HPI Respiratory: see HPI, cough Gastrointestinal: abdominal pain Genitourinary: no symptoms reported Musculoskeletal: no symptoms reported Skin: no symptoms reported Psychiatric/Neurological: No Symptoms Reported Hematologic/Lymphatic: No Symptoms Reported Past Bmtlyys-Ealyrn-Bcvjwg Hx Patient Social History Tobacco Use?: No Smoking Status: Never a Smoker Smokeless Tobacco Frequency: Never a User Use of E-Cig and/or Vaping dev: No Use of E-Cig and/or Vaping Jesu: Never a User Substance use?: No Alcohol Use?: No Pt feels they are or have been: No Immunizations Up To Date First/Initial COVID19 Vaccinat: 08/03 Second COVID19 Vaccination Armani: 08/03 Third COVID19 Vaccination Date: 08/03 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 oz. kg; 32.00 BMI Method: General Appearance: No Apparent Distress, WD/WN, Other (appears unwell. SpO2 90% room air and is not typically O2 dependent. HR 110, BP 113/83) Eyes: Bilateral Eye Normal Inspection, Bilateral Eye PERRL, Bilateral Eye EOMI HEENT: PERRL/EOMI, Normal ENT Inspection Neck: Full Range of Motion, Normal Inspection Respiratory: No Accessory Muscle Use, No Respiratory Distress Cardiovascular: Normal Peripheral Pulses, Tachycardia Gastrointestinal: Non Tender, Soft Extremity: Normal Capillary Refill, Normal Inspection Neurologic/Psychiatric: Alert, Oriented x3 Skin: Normal Color, Warm/Dry Progress/Results/Core Measures Suspected Sepsis SIRS Temperature: Pulse: 102 Respiratory Rate: 16 Laboratory Tests 01/16/22 16:43: White Blood Count 14.5H Blood Pressure 140 /93 Mean: 109 Laboratory Tests 01/16/22 16:43: Creatinine 1.07, Platelet Count 516H, Total Bilirubin 3.7H Results/Orders Lab Results Laboratory Tests Test 01/16/22 16:43 Range/Units White Blood Count 14.5 H 4.3-11.0 10^3/uL Red Blood Count 5.15 4.30-5.52 10^6/uL Hemoglobin 16.3 13.3-17.7 g/dL Hematocrit 48 40-54 % Mean Corpuscular Volume 93 80-99 fL Mean Corpuscular Hemoglobin 32 25-34 pg Mean Corpuscular Hemoglobin Concent 34 32-36 g/dL Red Cell Distribution Width 12.1 10.0-14.5 % Platelet Count 516 H 130-400 10^3/uL Mean Platelet Volume 9.9 9.0-12.2 fL Immature Granulocyte % (Auto) 1 % Neutrophils (%) (Auto) 78 H 42-75 % Lymphocytes (%) (Auto) 9 L 12-44 % Monocytes (%) (Auto) 10 0-12 % Eosinophils (%) (Auto) 1 0-10 % Basophils (%) (Auto) 0 0-10 % Neutrophils # (Auto) 11.4 H 1.8-7.8 10^3/uL Lymphocytes # (Auto) 1.3 1.0-4.0 10^3/uL Monocytes # (Auto) 1.5 H 0.0-1.0 10^3/uL Eosinophils # (Auto) 0.2 0.0-0.3 10^3/uL Basophils # (Auto) 0.1 0.0-0.1 10^3/uL Immature Granulocyte # (Auto) 0.1 0.0-0.1 10^3/uL Neutrophils % (Manual) 80 % Lymphocytes % (Manual) 13 % Monocytes % (Manual) 5 % Eosinophils % (Manual) 2 % Basophils % (Manual) 0 % Band Neutrophils 0 % Blood Morphology Comment NORMAL Sodium Level 140 135-145 MMOL/L Potassium Level 4.1 3.6-5.0 MMOL/L Chloride Level 102 98-107 MMOL/L Carbon Dioxide Level 23 21-32 MMOL/L Anion Gap 15 H 5-14 MMOL/L Blood Urea Nitrogen 21 H 7-18 MG/DL Creatinine 1.07 0.60-1.30 MG/DL Estimat Glomerular Filtration Rate 78 BUN/Creatinine Ratio 20 Glucose Level 125 H 70-105 MG/DL Calcium Level 9.7 8.5-10.1 MG/DL Corrected Calcium 10.1 8.5-10.1 MG/DL Total Bilirubin 3.7 H 0.1-1.0 MG/DL Aspartate Amino Transf (AST/SGOT) 36 H 5-34 U/L Alanine Aminotransferase (ALT/SGPT) 80 H 0-55 U/L Alkaline Phosphatase 181 H 40-136 U/L Total Protein 7.6 6.4-8.2 GM/DL Albumin 3.5 3.2-4.5 GM/DL Lipase 12 8-78 U/L Procalcitonin 0.26 H <0.10 NG/ML My Orders Orders - MINDI NEWMAN APRN Chest 1 View, Ap/Pa Only (01/16/22 16:49) Cbc With Automated Diff (01/16/22 16:49) Comprehensive Metabolic Panel (01/16/22 16:49) Ed Iv/Invasive Line Start (01/16/22 16:49) Procalcitonin (Pct) (01/16/22 16:49) Lipase (01/16/22 17:05) Lactated Ringers (Lr 1000 Ml Iv Solution (01/16/22 17:15) Fentanyl Inj (Sublimaze Injection) (01/16/22 17:15) Blood Culture (01/16/22 17:05) Lactic Acid Analyzer (01/16/22 17:05) Manual Differential (01/16/22 16:43) Us Gallbladder [id number] (01/16/22 17:12) Ct Abdomen/Pelvis W (01/16/22 18:06) Hydromorphone Injection (Dilaudid Inject (01/16/22 18:15) Iohexol Injection (Omnipaque 350 Mg/Ml 1 (01/16/22 18:30) Received Contrast (Hold Metformin- Contr (01/16/22 18:30) Ns (Ivpb) (Sodium Chloride 0.9% Ivpb Bag (01/16/22 18:30) Medications Given in ED Current Medications Medications Dose Ordered Sig/Tomasz Route Start Time Stop Time Status Last Admin Dose Admin Fentanyl Citrate 50 mcg ONCE ONCE IVP 01/16/22 17:15 01/16/22 17:16 DC 01/16/22 17:15 50 MCG Hydromorphone HCl 0.5 mg ONCE ONCE IV 01/16/22 18:15 01/16/22 18:16 DC 01/16/22 18:10 0.5 MG Iohexol 100 ml ONCE ONCE IV 01/16/22 18:30 01/16/22 18:31 DC 01/16/22 18:33 100 ML Sodium Chloride 100 ml ONCE ONCE IV 01/16/22 18:30 01/16/22 18:31 DC 01/16/22 18:33 80 ML Vital Signs/I&O 01/16/22 16:36 Temp 36.7 Pulse 102 Resp 16 B/P (MAP) 140/93 (109) O2 Delivery Room Air Capillary Refill : Less Than 3 Seconds Blood Pressure Mean: 109 Departure Communication (Admissions) NAME: MAXIMO CASANOVA [facility] REC#: [id number] PT STATUS: REG ER : 1960 PHYSICIAN: MINDI NEWMAN APRN ADMIT DATE: 01/16/22/ER Draft Date of Exam:01/16/22 CT ABDOMEN/PELVIS W CLINICAL INDICATION: Patient with right upper quadrant pain. Patient had gallbladder removed on Wednesday and has not been eating, drinking or walking like he was instructed. Patient was told he has pneumonia and a possible stone. EXAM: Axial CT scan of the abdomen and pelvis performed with 100 mL of Omnipaque 350 IV contrast. Sagittal and coronal reformatted images were created. Auto Exposure Controls were utilized during the CT exam to meet ALARA standards for radiation dose reduction. COMPARISON: CT scan of the abdomen and pelvis with contrast dated 01/11/2022. FINDINGS: There is a small right pleural effusion and minimal left pleural effusion which has developed in the interim. There is mild segmental subsegmental consolidation involving both lung bases which has progressed. There are interval postoperative changes with resection of the gallbladder. Surgical clips are seen in the region. There is slight increased density in the gallbladder fossa region which may represent a small amount of blood from recent postop changes. There is a small amount of perihepatic fluid and fluid around the liver which appears slightly excessive postcholecystectomy. There is a small amount of fluid in the left upper quadrant which has developed in the interim. There is slight low density involving the liver along the gallbladder fossa region which is nonspecific and may be from postop changes. Liver is otherwise unremarkable. There is no intrahepatic ductal dilation. There is no dilation of the residual common duct. The spleen, pancreas, and adrenal glands are unremarkable. Multiple left parapelvic cysts are again seen. Partial excretion of contrast involving the right renal pelvis noted. There are no stones or mass seen. Bladder is fluid-filled and otherwise unremarkable. Prostate gland is unremarkable. There is small amount of free fluid in the pelvis also seen. Appendix is unremarkable, as visualized. There is no intestinal obstruction. There is no significant intra-abdominal free air. Small amount of air seen in the umbilicus region. There are degenerative spurs involving the spine. IMPRESSION: 1: There is interval cholecystectomy changes. There is a small amount of amorphous increased density in the gallbladder fossa region which may represent blood from recent surgery. 2: There is interval development of a small to moderate amount of fluid within the upper abdomen and pelvis, with most seen around the liver. This fluid appears free flowing. There is also an area of low density along the liver near the gallbladder fossa region which is nonspecific. Etiology of this fluid is nonspecific and biloma should be excluded. Nuclear medicine HIDA scan with delayed imaging would help better evaluate. 3: There is no contained fluid collection to suggest abscess at this time, but infected fluid cannot be completely excluded. 4: Remainder of this exam is stable, besides postop changes. Dictated on workstation # [id number] Dict: 01/16/22 1837 Trans: 01/16/22 1904 [facility] [id number] Interpreted by: MELO OWEN MD Electronically signed by: Impression Primary Impression: Postoperative bile leak Disposition: ADMITTED INPATIENT Condition: Stable Admissions Decision to Admit Reason: Admit from ER (General) Decision to Admit/Date: January 16, 2022 Time/Decision to Admit Time: 19:16 Departure-Patient Inst. Referrals: NO,LOCAL PHYSICIAN (PCP/Family) Primary Care Physician MINDI NEWMAN APRN January 16, 2022 17:09
--- NOTE | 2022-01-16 17:14 | Diagnostic Imaging Report ---
CLINICAL INDICATIONS: Patient with abdominal pain. Reports having gallbladder removed on Wednesday and has not been eating, drinking or walking like he was instructed to. Patient was told he has pneumonia. EXAM: Portable chest x-ray upright view. COMPARISON: None. FINDINGS: Lungs/pleura: There are mild patchy airspace opacities involving both lung bases which may represent atelectasis versus infiltrate. Slight low lung volumes are noted. There is no pneumothorax. There is no pleural effusion. Mediastinum: Unremarkable. Pulmonary vasculature: Unremarkable. Heart: Unremarkable. Bones/extrathoracic soft tissue: There are degenerative spurs involving the thoracic spine.. IMPRESSION: There are mild bibasilar atelectasis versus infiltrates. Dictated by: Dictated on workstation # [id number]
[2022-01-16] MEDS ORDERED: fentaNYL INJ 100 MCG/2 ML AMP IVP ONE (17:15)
[2022-01-16] MEDS ORDERED: LACTATED RINGERS 1,000 ML IV SCH (17:15)
[2022-01-16 17:26] LABS: BAND NEUTROPHILS 0 %; BASOPHILS % (MANUAL) 0 %; EOSINOPHILS % (MANUAL) 2 %; LYMPHOCYTES % (MANUAL) 13 %; MONOCYTES % (MANUAL) 5 %; NEUTROPHILS % (MANUAL) 80 %; RBC MORPH NORMAL
[2022-01-16] MEDS ORDERED: HYDROmorphone 2 MG/ML VIAL (DILAUDID) IV ONE (18:15)
[2022-01-16] MEDS ORDERED: IOHEXOL 350 MG/ML 100 ML (OMNIPAQUE 350) VIAL IV ONE (18:30)
[2022-01-16] MEDS ORDERED: HOLD METFORMIN - RECEIVED CONTRAST 20 ML VIAL IV SCH (18:30)
[2022-01-16] MEDS ORDERED: NS 100 ML (IVPB) BAG IV ONE (18:30)
--- NOTE | 2022-01-16 18:49 | Diagnostic Imaging Report ---
PROCEDURE: US Gallbladder. TECHNIQUE: Multiple real-time grayscale images were obtained over the right upper quadrant in various projections. INDICATION: Elevated bilirubin. Abdominal pain. COMPARISON: None. FINDINGS: The pancreas is not well seen due to overlying bowel gas. Imaged portions of the aorta and IVC are unremarkable. The liver is normal in size. No focal hepatic lesions are seen. There is a small amount of free fluid present. There is a region of heterogeneous somewhat complex fluid in the region of the gallbladder fossa. The gallbladder is absent. The patient reportedly had a cholecystectomy on 01/12/2022. The common bile duct is at the upper limit of normal measuring 6 mm. The main portal vein is hepatopedal. The right kidney measures 10.5 cm in length. No hydronephrosis is seen. IMPRESSION: Heterogeneous fluid in the region of the gallbladder fossa, may be due to postsurgical changes such as a postoperative hematoma or seroma or bile leak. There is a small amount of free fluid about the liver as well. No biliary dilatation. Dictated by: Dictated on workstation # [id number]
--- NOTE | 2022-01-16 19:05 | Diagnostic Imaging Report ---
CLINICAL INDICATION: Patient with right upper quadrant pain. Patient had gallbladder removed on Wednesday and has not been eating, drinking or walking like he was instructed. Patient was told he has pneumonia and a possible stone. EXAM: Axial CT scan of the abdomen and pelvis performed with 100 mL of Omnipaque 350 IV contrast. Sagittal and coronal reformatted images were created. Auto Exposure Controls were utilized during the CT exam to meet ALARA standards for radiation dose reduction. COMPARISON: CT scan of the abdomen and pelvis with contrast dated 01/11/2022. FINDINGS: There is a small right pleural effusion and minimal left pleural effusion which has developed in the interim. There is mild segmental subsegmental consolidation involving both lung bases which has progressed. There are interval postoperative changes with resection of the gallbladder. Surgical clips are seen in the region. There is slight increased density in the gallbladder fossa region which may represent a small amount of blood from recent postop changes. There is a small amount of perihepatic fluid and fluid around the liver which appears slightly excessive postcholecystectomy. There is a small amount of fluid in the left upper quadrant which has developed in the interim. There is slight low density involving the liver along the gallbladder fossa region which is nonspecific and may be from postop changes. Liver is otherwise unremarkable. There is no intrahepatic ductal dilation. There is no dilation of the residual common duct. The spleen, pancreas, and adrenal glands are unremarkable. Multiple left parapelvic cysts are again seen. Partial excretion of contrast involving the right renal pelvis noted. There are no stones or mass seen. Bladder is fluid-filled and otherwise unremarkable. Prostate gland is unremarkable. There is small amount of free fluid in the pelvis also seen. Appendix is unremarkable, as visualized. There is no intestinal obstruction. There is no significant intra-abdominal free air. Small amount of air seen in the umbilicus region. There are degenerative spurs involving the spine. IMPRESSION: 1: There is interval cholecystectomy changes. There is a small amount of amorphous increased density in the gallbladder fossa region which may represent blood from recent surgery. 2: There is interval development of a small to moderate amount of fluid within the upper abdomen and pelvis, with most seen around the liver. This fluid appears free flowing. There is also an area of low density along the liver near the gallbladder fossa region which is nonspecific. Etiology of this fluid is nonspecific and biloma should be excluded. Nuclear medicine HIDA scan with delayed imaging would help better evaluate. 3: There is no contained fluid collection to suggest abscess at this time, but infected fluid cannot be completely excluded. 4: Remainder of this exam is stable, besides postop changes. Dictated by: Dictated on workstation # [id number]
[2022-01-16 20:40] VITALS: BP 133/75
[2022-01-16] MEDS ORDERED: ONDANSETRON 4 MG/2 ML (SDV) Z0FRAN IV PRN (21:30)
[2022-01-16] MEDS: LACTATED RINGERS 1,000 ML IV SCH (21:36)
[2022-01-16] MEDS: HYDROmorphone 2 MG/ML VIAL (DILAUDID) IV PRN (21:37)
[2022-01-16 23:58] VITALS: BP 126/84
[2022-01-17] VITALS (7 sets, daily range): BP systolic 122–154; BP diastolic 77–90
[2022-01-17] MEDS: HYDROmorphone 2 MG/ML VIAL (DILAUDID) IV PRN ×7 (00:20→14:22)
[2022-01-17] MEDS ORDERED: LOSA100T57 PO (01:25)
[2022-01-17] MEDS ORDERED: GBPN600T PO (05:21)
[2022-01-17] MEDS ORDERED: OXYC1TAB15 PO (05:23)
[2022-01-17] MEDS: LACTATED RINGERS 1,000 ML IV SCH ×2 (05:29→07:54)
[2022-01-17 06:02] LABS: BASOPHILS % (AUTO) 0 % (0-10); EOSINOPHILS # (AUTO) 0.3 10^3/uL (0.0-0.3); EOSINOPHILS % (AUTO) 2 % (0-10); HEMATOCRIT 42 % (40-54); HEMOGLOBIN 14.2 g/dL (13.3-17.7); LYMPHOCYTES # (AUTO) 1.5 10^3/uL (1.0-4.0); LYMPHOCYTES % (AUTO) 11 % (12-44); MEAN CORPUSCULAR HEMOGLOBIN 32 pg (25-34); MEAN CORPUSCULAR HGB CONC 34 g/dL (32-36); MEAN CORPUSCULAR VOLUME 94 fL (80-99); MEAN PLATELET VOLUME 9.8 fL (9.0-12.2); MONOCYTES # (AUTO) 1.4 10^3/uL (0.0-1.0); MONOCYTES % (AUTO) 10 % (0-12); NEUTROPHILS # (AUTO) 10.3 10^3/uL (1.8-7.8); NEUTROPHILS % (AUTO) 76 % (42-75); PLATELET COUNT 451 10^3/uL (130-400); WHITE BLOOD COUNT 13.5 10^3/uL (4.3-11.0)
[2022-01-17 06:16] LABS: POTASSIUM 4.2 MMOL/L (3.6-5.0)
[2022-01-17 06:17] LABS: CALCIUM 8.9 MG/DL (8.5-10.1)
[2022-01-17 06:21] LABS: CREATININE SERUM 0.9 MG/DL (0.60-1.30)
[2022-01-17 08:46] LABS: BILIRUBIN,DIRECT 2.1 MG/DL (0.0-0.3); BILIRUBIN,INDIRECT 0.9 MG/DL
--- NOTE | 2022-01-17 09:15 | Diagnostic Imaging Report ---
INDICATION: Recent cholecystectomy with fluid in the operative bed. After intravenous administration of 5.3 mCi technetium 99m Choletec, scintigraphic imaging is performed over the right upper quadrant of the abdomen. There is normal distribution throughout the liver on initial images. There is prompt appearance of activity in the biliary tree. Activity does extend laterally into the area of fluid collection seen on CT study performed one day earlier. No activity reach the small bowel within 25 minutes. IMPRESSION: Accumulation of activity lateral to the common hepatic duct is consistent with bile leak. Dictated by: Dictated on workstation # [id number]
--- NOTE | 2022-01-17 13:14 | Consultation - Surgery ---
History of Present Illness History of Present Illness Patient Consulted On(nancy/time) 01/17/22 13:09 Time Seen by Provider: 10:08 History of Present Illness Surgery asked to admit pt for possible bile leak. HPI per ED: PT AMBULATE TO ROOM 07 WITH C/O ABD PAIN. PT REPORTS HAVING GALLBLADDER REMOVED, ON WEDNESDAY AND THAT HE HAS NOT BEEN EATING, DRINKING, AND WALKING LIKE HE WAS INSTRUCTED TO DO. PT STATES WAS SEEN BY PCP TODAY AND A UA SHOWED HIGH BILIRUBIN IN URINE. PT STATES HE WAS TOLD HE HAS PNEUMONIA AND A POSSIBLE STONE. To ER with reports that he had a lap cholecystectomy here with Dr Campo on Wednesday01/12/22. He had a follow up with PCP [facility] today and was found to have pneumonia on chest xray, elevated wbc, and elevated bilirubin in urine. Timing/Duration: 1-2 Days Severity: Moderate Associated Systoms: Cough, Fever/Chills When I spoke to pt his am he states that he has had pain since surgery, it has never gotten better. He is unsure if his eyes have ever looked yellow. Pain is at least 8 out of 10 and constant sharp pain in the RUQ. Nothing has helped make it better, worse with movement. He also states he feels like his abdomen is a little swollen. Allergies and Home Medications Allergies Coded Allergies: Penicillins (Verified Allergy, Unknown, 01/11/22) Patient Home Medication List Home Medication List Reviewed: Yes Amlodipine Besylate (Amlodipine Besylate) 10 Mg Tablet, 10 MG PO HS, (Reported) Entered as Reported by: MACK ALVAREZ on 01/13/221117 Last Action: Reviewed Aspirin (Aspirin EC) 81 Mg Tablet., 81 MG PO HS, (Reported) Entered as Reported by: MACK ALVAREZ on 01/13/221117 Last Action: Reviewed Gabapentin (Gabapentin) 600 Mg Tablet, 600 MG PO TID, (Reported) Entered as Reported by: MACK ALVAREZ on 01/13/221117 Last Action: Reviewed Ginkgo Biloba (Ginkgo Biloba) 40 Mg Capsule, 40 MG PO DAILY, (Reported) Entered as Reported by: MACK ALVAREZ on 01/13/221117 Hydrocodone/Acetaminophen (Hydrocodone-Acetamin 7.5-325) 7.5 Mg-325 Mg Tablet, 1 EACH PO Q4H Prescribed by: MARCUS CAMPO on 01/12/22 181 Krill Oil (Krill Oil) 500 Mg Capsule, 500 MG PO DAILY, (Reported) Entered as Reported by: MACK ALVAREZ on 01/13/221117 Losartan Potassium (Losartan Potassium) 100 Mg Tablet, 100 MG PO DAILY, (Reported) Entered as Reported by: MACK ALVAREZ on 01/13/221117 Last Action: Reviewed Niacin (Niacin) 100 Mg Tablet, 200 MG PO DAILY, (Reported) Entered as Reported by: MACK ALVAREZ on 01/13/221117 Oxycodone HCl/Acetaminophen (Oxycodon-Acetaminophen 7.5-325) 7.5 Mg-325 Mg Tablet, 1 EACH PO PRN Prescribed by: PONCHO JOHNSON on 01/17/22522 Last Action: Reviewed Discontinued Medications Amlodipine Besylate (Amlodipine Besylate) 10 Mg Tablet, 10 MG PO DAILY PRN for BLOOD PRESSURE Discontinued Reason: Duplicate Order Prescribed by: PONCHO JOHNSON on 01/13/22422 Gabapentin (Gabapentin) 600 Mg Tablet, 600 MG PO TID Discontinued Reason: Duplicate Order Prescribed by: PONCHO JOHNSON on 01/17/22520 Last Action: Discontinued Losartan Potassium (Losartan Potassium) 100 Mg Tablet, 100 MG PO DAILY Discontinued Reason: Duplicate Order Prescribed by: PONCHO JOHNSON on 01/13/22422 Losartan Potassium (Losartan Potassium) 100 Mg Tablet, 100 MG PO DAILY Discontinued Reason: Duplicate Order Prescribed by: PONCHO JOHNSON on 01/17/22 0125 Last Action: Discontinued Oxycodone HCl/Acetaminophen (Oxycodon-Acetaminophen 7.5-325) 7.5 Mg-325 Mg Tablet, 1 EA PO Q6H PRN for PAIN-MODERATE (5-7), (Reported) Discontinued Reason: Referral/FU Appt-Addtl Entered as Reported by: MACK ALVAREZ on 01/13/221117 Past Bmfpzaw-Lerwry-Tidjyc Hx Patient Social History Smoking Status: Never a Smoker Alcohol Use?: No Have you traveled recently?: No Surgeries History of Surgeries: Yes Surgeries: Gallbladder Respiratory History of Respiratory Disorde: No Cardiovascular History of Cardiac Disorders: Yes Cardiac Disorders: High Cholesterol, Hypertension Neurological History of Neurological Disord: No Genitourinary History of Genitourinary Disor: No Gastrointestinal History of Gastrointestinal Di: No Musculoskeletal History of Musculoskeletal Dis: Yes (Sciatica) Musculoskeletal Disorders: Chronic Back Pain Endocrine History of Endocrine Disorders: No HEENT History of HEENT Disorders: No Cancer History of Cancer: No Psychosocial History of Psychiatric Problem: No Integumentary History of Skin or Integumenta: No Family Medical History Significant Family History: Hypertension Review of Systems-General Constitutional: chills, diaphoresis, fever, malaise EENTM: No blurred vision, No mouth pain, No mouth swelling, No epistaxis Respiratory: No cough, No dyspnea on exertion Cardiovascular: No palpitations Gastrointestinal: abdominal pain (RUQ), nausea; No vomiting Genitourinary: dysuria; No frequency, No hematuria Musculoskeletal: back pain, joint pain, joint swelling, muscle stiffness Skin: No change in color, No change in hair/nails Psychiatric/Neurological: Denies Anxiety, Denies Depressed, Denies Seizure, Denies Tremors Physical Exam-General Problems Physical Exam Vital Signs Vital Signs - First Documented 01/16/22 01/16/22 01/16/22 16:36 20:40 22:00 Temp 36.7 Pulse 102 Resp 16 B/P (MAP) 140/93 (109) Pulse Ox 91 O2 Delivery Room Air O2 Flow Rate 2.00 Capillary Refill : Less Than 3 Seconds General Appearance: WD/WN, moderate distress Eyes: Bilateral Eye PERRL, Bilateral Eye EOMI HEENT: pharynx normal; No scleral icterus (R), No scleral icterus (L); other (normal dentition) Neck: non-tender, supple Respiratory: lungs clear, normal breath sounds, no respiratory distress, no accessory muscle use, decreased breath sounds (right base) Cardiovascular: regular rate, rhythm, no murmur Gastrointestinal: distended, guarding (voluntary), tenderness (diffusely), hernia (umbilical) Back: no CVA tenderness, no vertebral tenderness Extremities: no pedal edema, no calf tenderness Neurologic/Psychiatric: development executive II-XII nml as tested, no motor/sensory deficits, alert, normal mood/affect, oriented x 3 Skin: normal color, warm/dry Lymphatic: no adenopathy (neck, axilla or groin) Data Review Labs Laboratory Tests 01/16/22 16:43: White Blood Count 14.5H, Red Blood Count 5.15, Hemoglobin 16.3, Hematocrit 48, Mean Corpuscular Volume 93, Mean Corpuscular Hemoglobin 32, Mean Corpuscular Hemoglobin Concent 34, Red Cell Distribution Width 12.1, Platelet Count 516H, Mean Platelet Volume 9.9, Immature Granulocyte % (Auto) 1, Neutrophils (%) (Auto) 78H, Lymphocytes (%) (Auto) 9L, Monocytes (%) (Auto) 10, Eosinophils (%) (Auto) 1, Basophils (%) (Auto) 0, Neutrophils # (Auto) 11.4H, Lymphocytes # (Auto) 1.3, Monocytes # (Auto) 1.5H, Eosinophils # (Auto) 0.2, Basophils # (Auto) 0.1, Immature Granulocyte # (Auto) 0.1, Neutrophils % (Manual) 80, Lymphocytes % (Manual) 13, Monocytes % (Manual) 5, Eosinophils % (Manual) 2, Basophils % (Manual) 0, Band Neutrophils 0, Blood Morphology Comment NORMAL, Sodium Level 140, Potassium Level 4.1, Chloride Level 102, Carbon Dioxide Level 23, Anion Gap 15H, Blood Urea Nitrogen 21H, Creatinine 1.07, Estimat Glomerular Filtration Rate 78, BUN/Creatinine Ratio 20, Glucose Level 125H, Calcium Level 9.7, Corrected Calcium 10.1, Total Bilirubin 3.7H, Aspartate Amino Transf (AST/SGOT) 36H, Alanine Aminotransferase (ALT/SGPT) 80H, Alkaline Phosphatase 181H, Total Protein 7.6, Albumin 3.5, Lipase 12, Procalcitonin 0.26H 01/16/22 19:35: Lactic Acid Level 2.36*H 01/16/22 21:33: Lactic Acid Level 1.13 01/17/22 05:50: White Blood Count 13.5H, Red Blood Count 4.49, Hemoglobin 14.2, Hematocrit 42, Mean Corpuscular Volume 94, Mean Corpuscular Hemoglobin 32, Mean Corpuscular Hemoglobin Concent 34, Red Cell Distribution Width 12.2, Platelet Count 451H, Mean Platelet Volume 9.8, Immature Granulocyte % (Auto) 1, Neutrophils (%) (Auto) 76H, Lymphocytes (%) (Auto) 11L, Monocytes (%) (Auto) 10, Eosinophils (%) (Auto) 2, Basophils (%) (Auto) 0, Neutrophils # (Auto) 10.3H, Lymphocytes # (Auto) 1.5, Monocytes # (Auto) 1.4H, Eosinophils # (Auto) 0.3, Basophils # (Auto) 0.0, Immature Granulocyte # (Auto) 0.1, Sodium Level 140, Potassium Level 4.2, Chloride Level 105, Carbon Dioxide Level 23, Anion Gap 12, Blood Urea Nitrogen 20H, Creatinine 0.90, Estimat Glomerular Filtration Rate 96, BUN/Creatinine Ratio 22, Glucose Level 114H, Calcium Level 8.9, Total Bilirubin 3.0H, Aspartate Amino Transf (AST/SGOT) 29, Alanine Aminotransferase (ALT/SGPT) 59H, Direct Bilirubin 2.1H, Indirect Bilirubin 0.9 Radiology Date of Exam:01/17/22 HEPATOBILIARY WITH EJECTION FR INDICATION: Recent cholecystectomy with fluid in the operative bed. After intravenous administration of 5.3 mCi technetium 99m Choletec, scintigraphic imaging is performed over the right upper quadrant of the abdomen. There is normal distribution throughout the liver on initial images. There is prompt appearance of activity in the biliary tree. Activity does extend laterally into the area of fluid collection seen on CT study performed one day earlier. No activity reach the small bowel within 25 minutes. IMPRESSION: Accumulation of activity lateral to the common hepatic duct is consistent with bile leak. Dictated by: Dictated on workstation # [id number] Dict: 01/17/22 0912 Trans: 01/17/22 1014 [facility] [id number] Interpreted by: NORIS MENDENHALL MD Electronically signed by: NORIS MENDENHALL MD 01/17/22 1014 Date of Exam:01/16/22 CT ABDOMEN/PELVIS W CLINICAL INDICATION: Patient with right upper quadrant pain. Patient had gallbladder removed on Wednesday and has not been eating, drinking or walking like he was instructed. Patient was told he has pneumonia and a possible stone. EXAM: Axial CT scan of the abdomen and pelvis performed with 100 mL of Omnipaque 350 IV contrast. Sagittal and coronal reformatted images were created. Auto Exposure Controls were utilized during the CT exam to meet ALARA standards for radiation dose reduction. COMPARISON: CT scan of the abdomen and pelvis with contrast dated 01/11/2022. FINDINGS: There is a small right pleural effusion and minimal left pleural effusion which has developed in the interim. There is mild segmental subsegmental consolidation involving both lung bases which has progressed. There are interval postoperative changes with resection of the gallbladder. Surgical clips are seen in the region. There is slight increased density in the gallbladder fossa region which may represent a small amount of blood from recent postop changes. There is a small amount of perihepatic fluid and fluid around the liver which appears slightly excessive postcholecystectomy. There is a small amount of fluid in the left upper quadrant which has developed in the interim. There is slight low density involving the liver along the gallbladder fossa region which is nonspecific and may be from postop changes. Liver is otherwise unremarkable. There is no intrahepatic ductal dilation. There is no dilation of the residual common duct. The spleen, pancreas, and adrenal glands are unremarkable. Multiple left parapelvic cysts are again seen. Partial excretion of contrast involving the right renal pelvis noted. There are no stones or mass seen. Bladder is fluid-filled and otherwise unremarkable. Prostate gland is unremarkable. There is small amount of free fluid in the pelvis also seen. Appendix is unremarkable, as visualized. There is no intestinal obstruction. There is no significant intra-abdominal free air. Small amount of air seen in the umbilicus region. There are degenerative spurs involving the spine. IMPRESSION: 1: There is interval cholecystectomy changes. There is a small amount of amorphous increased density in the gallbladder fossa region which may represent blood from recent surgery. 2: There is interval development of a small to moderate amount of fluid within the upper abdomen and pelvis, with most seen around the liver. This fluid appears free flowing. There is also an area of low density along the liver near the gallbladder fossa region which is nonspecific. Etiology of this fluid is nonspecific and biloma should be excluded. Nuclear medicine HIDA scan with delayed imaging would help better evaluate. 3: There is no contained fluid collection to suggest abscess at this time, but infected fluid cannot be completely excluded. 4: Remainder of this exam is stable, besides postop changes. Dictated by: Dictated on workstation # [id number] Dict: 01/16/22 1837 Trans: 01/16/22 5689 [facility] [id number] Interpreted by: MELO OWEN MD Electronically signed by: MELO OWEN MD 01/16/22 1910 Assessment/Plan Assessment/Plan Assessment/Plan RUQ abdominal pain Hyperbilirubinemia Elevated WBC Bile Leak Plan is NPO, IV fluids, IV ABX, pain control, anti-emetics as needed. I reviewed the CT and HIDA scan myself; unfortunately, I think pt needs higher care. He definitely has a bile leak and my concern is he could have a transection of the common bile duct. [facility] I spoke with the GI doctor down there and he basically refused, saying they didn't have anyone who could repair CBD if needed. I am currently trying to get him transferred up to . DANY HSU DO January 17, 2022 13:14
--- NOTE | 2022-01-17 15:07 | Discharge Inst-Surgical ---
Discharge Inst-Surgical Depart Medication/Instructions New, Converted or Re-Newed RX: Other (meds to resume at [facility]) Activity Activity as Tolerated: Yes Skin/Wound Care Bathing Instructions: DANY Metzger DO January 17, 2022 15:07
== END 2022-01-17 15:30 | disposition short-term general hospital (02) | DRG 395 ==
LOC: EDUNIT# 16:27 → ER 16:32 → 4TH 19:22
PROVIDERS: ADMIT Surgery; ATTEND Surgery
DX: K91.89 Other postprocedural complications and disorders of digestive system (principal); K83.8 Other specified diseases of biliary tract; E78.00 Pure hypercholesterolemia, unspecified; I10 Essential (primary) hypertension; G89.29 Other chronic pain; M54.9 Dorsalgia, unspecified; E80.6 Other disorders of bilirubin metabolism; Z90.49 Acquired absence of other specified parts of digestive tract; Z79.82 Long term (current) use of aspirin; Z79.899 Other long term (current) drug therapy
CPT/HCPCS: 36415; 71045; 74177; 76705; 78227; 80048; 80053; 82247; 82248; 83605; 83690; 84145; 84450; 84460; 85007; 85025; 85027; 87040; 93005; 94664; 94760

== ENCOUNTER → 2022-11-19 | Outpatient (CLI) | payer BC ==
--- NOTE | 2022-11-19 09:27 | Diagnostic Imaging Report ---
PROCEDURE: CT abdomen and pelvis without contrast. TECHNIQUE: Multiple contiguous axial images were obtained through the abdomen and pelvis without the use of intravenous contrast. Auto Exposure Controls were utilized during the CT exam to meet ALARA standards for radiation dose reduction. INDICATION: Elevated liver enzymes and bilirubin. COMPARISON: 01/16/2022. FINDINGS: The heart is unremarkable. Subsegmental atelectasis is seen in the left lung base. The gallbladder surgically absent. Pneumobilia is noted. Parapelvic cysts are seen in the left kidney. A nonobstructive calculus is seen in the mid left kidney measuring 4 mm. No obstructing calculi or hydronephrosis. The urinary bladder is nondistended. A catheter or stent is visualized within the head of the pancreas extending into the 2nd portion of the duodenum. No peripancreatic inflammation. No pancreatic ductal dilation is seen. No focal pancreatic mass. The spleen and adrenal glands have a normal noncontrast CT appearance. There is no pathologically enlarged mesenteric or retroperitoneal adenopathy. The bowel loops are nondilated. There is no free fluid or free air. No acute osseous abnormalities. There is grade 1 retrolisthesis of L5 on S1. Endplate sclerotic changes are seen at the L5-S1 level. Scattered calcified aortic and iliac atherosclerotic plaque is seen without aneurysm. There is no free air, loculated collection, or adenopathy in the pelvis. IMPRESSION: 1. Pneumobilia, which may be due to sphincter of Abdulkadir dysfunction. The gallbladder surgically absent. 2. Catheter or stent within the head of the pancreas extending into the 2nd portion of the duodenum. No evidence of pancreatic ductal dilation. Dictated by: Dictated on workstation # [id number]
== END ==
LOC: RAD 08:56
PROVIDERS: ATTEND Registered Nurse Critical Care Medicine
DX: Z00.00 Encounter for general adult medical examination without abnormal findings (principal); Z76.0 Encounter for issue of repeat prescription; Z12.11 Encounter for screening for malignant neoplasm of colon; Z12.5 Encounter for screening for malignant neoplasm of prostate; J15.8 Pneumonia due to other specified bacteria; I10 Essential (primary) hypertension; K76.9 Liver disease, unspecified; R74.01 Elevation of levels of liver transaminase levels; R42 Dizziness and giddiness
CPT/HCPCS: 74176

== ENCOUNTER → 2022-11-20 | Outpatient (CLI) | payer BC ==
[~2022-11-20] MED LIST changes: +HOLD METFORMIN - RECEIVED CONTRAST 20 ML VIAL IV SCH; +IOHEXOL 350 MG/ML 100 ML (OMNIPAQUE 350) VIAL IV ONE; +NS 100 ML (IVPB) BAG IV ONE
[2022-11-20] MEDS: CATHETER FLUSH 10 ML SYR IV PRN ×2 (17:20→17:21)
--- NOTE | 2022-11-20 18:00 | Diagnostic Imaging Report ---
EXAMINATION: CT angiography of the chest. TECHNIQUE: Contrast enhanced thin section helical images were obtained through the chest with intravenous contrast timed for the optimal opacification of the arterial structures per CTA protocol. Post-processing, reconstructions and interpretation of angiographic images of the vessels was performed. 3D MIP reconstructions were performed and reviewed. All CT scans use one or more of the following dose optimizing techniques: automated exposure control, MA and/or KvP adjustment based on patient size and exam type or iterative reconstruction. HISTORY: Shortness breath, elevated D-dimer. COMPARISON: None available. FINDINGS: There is no pulmonary embolism. There is no edema or pneumonia. No pleural effusion. No pneumothorax. No suspicious nodule. There is mild left base atelectasis. There is no axillary or supraclavicular lymphadenopathy. There is no mediastinal lymphadenopathy. Heart size is normal. There are mild coronary artery calcifications. No pericardial effusion. Aorta is normal in caliber. Limited views of the upper abdomen show unchanged pneumobilia. There is a stent in the pancreatic duct. There are peripelvic cysts on the left. There is no suspicious osseus lesion. IMPRESSION: No pulmonary embolism. Dictated by: Dictated on workstation # [id number]
== END ==
LOC: RAD 16:17
PROVIDERS: ATTEND Nurse Practitioner Family
DX: Z00.00 Encounter for general adult medical examination without abnormal findings (principal); Z12.11 Encounter for screening for malignant neoplasm of colon; Z12.5 Encounter for screening for malignant neoplasm of prostate; Z76.0 Encounter for issue of repeat prescription; J15.8 Pneumonia due to other specified bacteria; R42 Dizziness and giddiness; R74.01 Elevation of levels of liver transaminase levels; K76.9 Liver disease, unspecified; I10 Essential (primary) hypertension
CPT/HCPCS: 71275

== ENCOUNTER 2023-02-14 17:04 | Emergency (ER) | payer BC ==
[~2023-02-14] VITALS: Ht 172 cm; Wt 90.0 kg
[~2023-02-14 17:04] MED LIST changes: -HOLD METFORMIN - RECEIVED CONTRAST 20 ML VIAL IV SCH; -IOHEXOL 350 MG/ML 100 ML (OMNIPAQUE 350) VIAL IV ONE; -NS 100 ML (IVPB) BAG IV ONE
[2023-02-14 17:14] VITALS: BP 136/84
--- NOTE | 2023-02-14 18:09 | ED Integumentary General ---
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 PT REPORTS WAS PICKING HIS DOG UP FROM "[facility]" WHEN ANOTHER DOG "BIT HIS HAND HE WAS GRABBING HIS DOG." PT REPORTS DOG IS FULLY IMMUNIZED PER DOG CARE CENTER. LACERATIONS ET ABRASIONS NOTED TO SANDERS SURFACE ET SIDE OF HAND. NO OTHER C/O VOICED. Source: patient Exam Limitations: no limitations History of Present Illness Date Seen by Provider: Feb 14, 2023 Time Seen by Provider: 17:56 Initial Comments 62-year-old male presents to the ER for a dog bite which occurred approximately 30 to 45 minutes prior to arrival. Patient states that the dog was at a [facility] day[facility], it is up-to-date on its rabies vaccination. He thinks his last tetanus was 2 to 3 years ago, but he is uncertain and. Patient is agreeable to updating his tetanus today. Allergies and Home Medications Allergies Coded Allergies: Penicillins (Verified Allergy, Unknown, 01/11/22) Patient Home Medication List Home Medication List Reviewed: Yes Amlodipine Besylate (Amlodipine Besylate) 10 Mg Tablet, 10 MG PO HS, (Reported) Entered as Reported by: MACK ALVAREZ on 01/13/22 1118 Aspirin (Aspirin EC) 81 Mg Tablet.dr, 81 MG PO HS, (Reported) Entered as Reported by: MACK ALVAREZ on 01/13/22 1118 Gabapentin (Gabapentin) 600 Mg Tablet, 600 MG PO TID, (Reported) Entered as Reported by: MACK ALVAREZ on 01/13/22 1118 Ginkgo Biloba (Ginkgo Biloba) 40 Mg Capsule, 40 MG PO DAILY, (Reported) Entered as Reported by: MACK ALVAREZ on 01/13/22 1118 Hydrocodone/Acetaminophen (Hydrocodone-Acetamin 7.5-325) 7.5 Mg-325 Mg Tablet, 1 EACH PO Q4H Prescribed by: MARCUS DA SILVA on 01/12/221810 Krill Oil (Krill Oil) 500 Mg Capsule, 500 MG PO DAILY, (Reported) Entered as Reported by: MACK ALVAREZ on 01/13/22 1118 Losartan Potassium (Losartan Potassium) 100 Mg Tablet, 100 MG PO DAILY, (Reported) Entered as Reported by: MACK ALVAREZ on 01/13/22 1118 Niacin (Niacin) 100 Mg Tablet, 200 MG PO DAILY, (Reported) Entered as Reported by: MACK ALVAREZ on 01/13/22 1118 Oxycodone HCl/Acetaminophen (Oxycodon-Acetaminophen 7.5-325) 7.5 Mg-325 Mg Tablet, 1 EACH PO PRN Prescribed by: PONCHO JOHNSON on 01/17/22 0523 Review of Systems Review of Systems Constitutional: see HPI Past Kcpzpsw-Uquxud-Fghqjd Hx Patient Social History Tobacco Use?: No Use of E-Cig and/or Vaping dev: No Substance use?: No Alcohol Use?: No Pt feels they are or have been: No Immunizations Up To Date First/Initial COVID19 Vaccinat: 2020 Second COVID19 Vaccination Armani: 2020 Third COVID19 Vaccination Date: na Past Medical History Surgery/Hospitalization HX: Monica Surgeries: Yes Gallbladder Respiratory: No Currently Using CPAP: No Currently Using BIPAP: No Cardiac: Yes High Cholesterol, Hypertension Neurological: No Genitourinary: No Gastrointestinal: No Musculoskeletal: Yes (Sciatica) Chronic Back Pain Endocrine: No HEENT: No Cancer: No Psychosocial: No Integumentary: No Family Medical History Hypertension Physical Exam Vital Signs Vital Signs - First Documented 02/14/23 17:14 Temp 36.5 Pulse 72 Resp 20 B/P (MAP) 136/84 (101) Pulse Ox 97 O2 Delivery Room Air Capillary Refill : Less Than 3 Seconds General Appearance: WD/WN, no apparent distress Neck: supple, normal inspection Cardiovascular: regular rate, rhythm Respiratory: lungs clear, normal breath sounds, no respiratory distress, no accessory muscle use Extremities: normal range of motion Neurologic/Psychiatric: alert, normal mood/affect Skin: normal color, warm/dry Skin Problem Location: upper extremities (Right hand) Skin Problem Character: other (2 lacerations, abrasions) Progress/Results/Core Measures Results/Orders My Orders Orders - CHIQUITA SUE APRN Dipht,Pertuss(Acell),Tet Adult (Boostrix (02/14/23 18:15) Clindamycin Capsule (Cleocin Capsule) (02/14/23 18:45) Sulfamethoxazole/Trimet Ds Tab (Bactrim (02/14/23 18:45) Medications Given in ED Current Medications Medications Dose Ordered Sig/Tomasz Route Start Time Stop Time Status Last Admin Dose Admin Diphtheria/ Tetanus/Acell Pertussis 0.5 ml ONCE ONCE IM 02/14/23 18:15 02/14/23 18:16 DC 02/14/23 18:16 0.5 ML Vital Signs/I&O 02/14/23 17:14 Temp 36.5 Pulse 72 Resp 20 B/P (MAP) 136/84 (101) Pulse Ox 97 O2 Delivery Room Air Blood Pressure Mean: 101 Progress Progress Note : Progress Note Patient seen evaluated, resting comfortably in recliner, no acute distress. One of the lacerations on patient and will need to be repaired with sutures. Will update tetanus. Laceration repaired, see procedure note. Antibiotic here now and discharged with prescription. Discharge instructions and return precautions provided. Departure Impression Primary Impression: Dog bite Disposition: HOME, SELF-CARE Condition: Stable Departure-Patient Inst. Decision time for Depature: 18:44 Referrals: NO,LOCAL PHYSICIAN (PCP/Family) Primary Care Physician Patient Instructions: Animal Bites ED Add. Discharge Instructions: Keep your hand clean and dry, you may wash it with soap and water, do not scrub. Do not soak your hand. Complete full course of antibiotic as prescribed. Return in 5 to 7 days or see your primary care provider to have the sutures removed. Return for swelling of your hand, redness, fevers, or any other new, concerning, or worsening symptoms. All discharge instructions reviewed with patient and/or family. Voiced understanding. Scripts Sulfamethoxazole/Trimethoprim (Bactrim Ds Tablet) 1 Each Tablet 1 EACH PO BID for 10 Days, #20 TAB 0 Refills Prov: CHIQUITA SUE APRN 02/14/23 Clindamycin HCl (Clindamycin HCl) 150 Mg Capsule 450 MG PO TID for 10 Days, #90 CAP 0 Refills Prov: CHIQUITA SUE APRN 02/14/23 CHIQUITA SUE APRN Feb 14, 2023 18:09
[2023-02-14] MEDS ORDERED: TETANUS,DIPTH,PERTUSS P/F (BOOSTRIX) 0.5 ML VIAL IM ONE (18:15)
[2023-02-14] MEDS ORDERED: TRIM/SULFAMETH 160/800 (SEPTRA DS) TAB PO ONE (18:45)
[2023-02-14] MEDS ORDERED: CLINDAMYCIN 150 MG (CLEOCIN) CAP PO ONE (18:45)
[2023-02-14] MEDS ORDERED: SULF1TAB38 PO (18:46)
[2023-02-14] MEDS ORDERED: CLIN150C20 PO (18:46)
== END 2023-02-14 19:10 | disposition home or self-care (01) ==
LOC: EDUNIT# 17:04 → ER 17:07
DX: S61.411A Laceration without foreign body of right hand, initial encounter (principal); Z23 Encounter for immunization; Z88.0 Allergy status to penicillin; W54.0XXA Bitten by dog, initial encounter
CPT/HCPCS: 12042; 90715

== ENCOUNTER 2023-02-23 14:18 | Emergency (ER) | payer BC ==
[~2023-02-23 14:18] MED LIST changes: +CLIN150C20 PO; -LOSA100T57 PO; +LOSA100T58 PO; +SULF1TAB38 PO
[2023-02-23 14:29] VITALS: BP 137/74
== END 2023-02-23 14:30 | disposition home or self-care (01) ==
LOC: EDUNIT# 14:18 → ER 14:20
DX: Z48.02 Encounter for removal of sutures (principal)

== ENCOUNTER → 2023-07-20 | Outpatient (CLI) | payer BC ==
[~2023-07-20] MED LIST changes: +CATHETER FLUSH 10 ML SYR IVP PRN; +REGADENOSON 0.4 MG/5 ML SYR IV ONE
[2023-07-20 09:54] VITALS: BP 125/78
[2023-07-20 10:01] VITALS: BP 140/84
== END ==
LOC: CARD 08:29
PROVIDERS: ATTEND Internal Medicine Cardiovascular Disease
DX: R53.83 Other fatigue (principal)
CPT/HCPCS: 78452; 93017; A9502

== ENCOUNTER → 2023-07-23 | Outpatient (CLI) | payer BC ==
[~2023-07-23] MED LIST changes: -CATHETER FLUSH 10 ML SYR IVP PRN; -REGADENOSON 0.4 MG/5 ML SYR IV ONE
== END ==
LOC: CARD 09:10
PROVIDERS: ATTEND Internal Medicine Cardiovascular Disease
DX: I35.8 Other nonrheumatic aortic valve disorders (principal); R53.83 Other fatigue
CPT/HCPCS: 93306